=== PATIENT | female | born 1950 | race Hispanic/Latino ===

== ENCOUNTER 2016-10-10 15:11 | Outpatient (CLI) | payer MEDICARE, OTHER ==
--- NOTE | 2016-10-10 16:18 | Mammography Report ---
BONE DENSITY STUDY: DEFINITIONS: BMD = Bone Mineral Density T-score = BMD related to mean peak bone mass of young adult (mean expressed in Standard Deviation) Z-score = Age matched BMD expressed in SD World Health Organization (WHO) Diagnostic Criteria Normal T-score > -1 SD Osteopenia T-score between -1 and -2.4 SD Osteoporosis T-score -2.5 SD or below FINDINGS: The weighted average BMD of lumbar spine L1-L4 is 1.090 with a T-score of 0.4. The weighted average BMD of hip is 0.704 with a T-score of -2.0. IMPRESSION: The patient's T-score is diagnostic for osteopenia and average relative risk for fracture. NOTE: BMD is not the only risk factor for fracture; also consider factors such as the patient's age, risk of falling, previous osteoporotic fracture, family history of osteoporotic fractures, current smoker, and low body weight. Avelar's triangle is a region of interest in femur, predominantly of trabecular bone. It is not a true anatomic site, and [facility] does not recommend its use clinically.
== END 2016-10-10 15:12 | disposition home or self-care (01) ==
LOC: SPVWC 15:11
PROVIDERS: ATTEND Family Medicine
DX: M81.0 Age-related osteoporosis without current pathological fracture (principal); M85.88 Other specified disorders of bone density and structure, other site
CPT/HCPCS: 77080

== ENCOUNTER 2017-08-27 13:46 | Outpatient (CLI) | payer MEDICARE, OTHER ==
--- NOTE | 2017-08-27 19:17 | XRay Report ---
FINAL REPORT EXAM: XR HIP 2-3V RT HISTORY: RIGHT HIP PAIN TECHNIQUE: Right hip two views PRIORS: None. FINDINGS: There is right femoral hip screw and chase present. No abnormal bony lucencies are identified. No acute fractures are seen. There is mild degenerative narrowing of the right hip joint. Bony pelvis demonstrates no evidence for acute fracture. No evidence for widening of the pubic symphysis or the SI joints. IMPRESSION: Right femoral hip screw and chase bridging remote fracture Mild narrowing at the right hip joint consistent with degenerative change
--- NOTE | 2017-08-27 21:28 | XRay Report ---
FINAL REPORT EXAM: XR SHOULDER 2+V RT HISTORY: RIGHT SHOULDER PAIN TECHNIQUE: Two views of the right shoulder PRIORS: None. FINDINGS: There is deformity of the humeral head which appears flattened this could reflect chronic versus acute fracture. Margins do appear likely corticated. AC joint is intact. Adjacent bony and soft tissue structures are unremarkable. No evidence for dislocation. IMPRESSION: Humeral head fracture which may be acute or chronic. Correlation with physical findings and any prior studies if these could be obtained would be helpful for further evaluation.
== END 2017-08-27 13:47 | disposition home or self-care (01) ==
LOC: XRAY 13:46
PROVIDERS: ATTEND Orthopaedic Surgery Sports Medicine
DX: S42.301A Unspecified fracture of shaft of humerus, right arm, initial encounter for closed fracture (principal); S72.001A Fracture of unspecified part of neck of right femur, initial encounter for closed fracture; X58.XXXA Exposure to other specified factors, initial encounter; Y93.89 Activity, other specified; Y92.89 Other specified places as the place of occurrence of the external cause; Y99.8 Other external cause status